=== PATIENT | female | born 1970 | race Caucasian/White ===

== ENCOUNTER → 2024-07-31 14:13 | Outpatient (REF) | payer OTHER, SELFPAY | LOC: WDC 14:13 | PROVIDERS: ATTENDING PHYSICIAN Family Medicine | DX: Z12.31 Encounter for screening mammogram for malignant neoplasm of breast (principal) | CPT/HCPCS: 77063; 77067 ==

== ENCOUNTER 2024-11-22 06:02 | Day surgery (SDC) | payer OTHER, SELFPAY ==
[2024-11-22 09:05] VITALS: BP 146/88; BMI 54.9
[2024-11-22 09:24] VITALS: BMI 54.9
[2024-11-22 10:00] VITALS: BP 107/83
[2024-11-22 10:15] VITALS: BP 120/78
[2024-11-22 10:23] VITALS: BP 113/74
== END 2024-11-22 10:30 | disposition home or self-care (01) ==
LOC: GI 06:02
PROVIDERS: ATTENDING PHYSICIAN Internal Medicine
DX: Z12.11 Encounter for screening for malignant neoplasm of colon (principal); K63.5 Polyp of colon; K57.30 Diverticulosis of large intestine without perforation or abscess without bleeding
CPT/HCPCS: 45385; 88305